=== PATIENT | male | born 1960 | race Caucasian/White ===

== ENCOUNTER 2018-07-11 12:18 | Emergency (ER) | payer OTHER ==
[~2018-07-11] VITALS: Ht 165.1 cm; Wt 87.5 kg
[2018-07-11 12:30] VITALS: Ht 165.1 cm; Wt 87.5 kg
[2018-07-11 13:12] LABS: BASOPHIL % 0.4 % (0-2); PLATELET COUNT 147 x10^3mcL (130-400); RED CELL DISTRIBUTION WIDTH 12.6 % (11.5-14.5)
[2018-07-11 13:18] LABS: CALCIUM 8.5 mg/dL (8.5-10.1); CARBON DIOXIDE 28.1 mmol/L (21-32); CHLORIDE SERUM 101 mmol/L (98-107); CREATININE SERUM 0.9 mg/dL (0.7-1.3); GFR1 > 60 mL/min; GLUCOSE SERUM 336 mg/dL (74-106); POTASSIUM SERUM 3.9 mmol/L (3.5-5.1); SODIUM SERUM 134 mmol/L (136-145)
[2018-07-11 13:23] LABS: ALKALINE PHOSPHATASE 76 U/L (46-116); ALT/SGPT 33 U/L (16-63); AST/SGOT 17 U/L (15-37); BILIRUBIN TOTAL 0.6 mg/dL (0.20-1.00); TOTAL PROTEIN, SERUM 6.8 g/dL (6.4-8.2)
[2018-07-11 13:34] LABS: ALBUMIN 3.1 g/dL (3.4-5.0)
[2018-07-11 15:38] VITALS: BP 136/90
== END 2018-07-11 15:38 | disposition home or self-care (01) ==
LOC: ED 12:18
PROVIDERS: Emergency Medicine
DX: E11.65 Type 2 diabetes mellitus with hyperglycemia (principal); H11.32 Conjunctival hemorrhage, left eye; R42 Dizziness and giddiness; I10 Essential (primary) hypertension; E78.00 Pure hypercholesterolemia, unspecified
CPT/HCPCS: 36415; 82962; Q0092